=== PATIENT | male | born 1935 | race Caucasian/White ===

== ENCOUNTER 2019-03-07 22:33 | Inpatient (IN) | payer MEDICARE, OTHER ==
--- NOTE | 2019-03-07 22:46 | C.PDOC ---
History Of Present Illness Patient is sent to the ED from [facility] for evaluation of abnormal EKG. Patient is confused at baseline difficulty history obtained. Patient denies CP, headache, palpitations. Time Seen by Provider: 03/07/19 22:45 Chief Complaint (Nursing): Medical Clearance History Per: Patient History/Exam Limitations: clinical condition Onset/Duration Of Symptoms: Days Recent travel outside of the [place]: No Additional History Per: [facility], Prior Records Past Medical History Reviewed: Historical Data, Nursing Documentation, Vital Signs - Medical History PMH: No Chronic Diseases Surgical History: No Surg Hx Family History: States: Unknown Family Hx - Social History Hx Alcohol Use: No Review Of Systems Review Of Systems: ROS cannot be obtained secondary to pt's inabilty to answer questions. Physical Exam - Physical Exam Appears: Non-toxic, Confused Skin: Warm, Dry Head: Normacephalic Eye(s): right: Other (cataract), left: Normal Inspection Teeth: No Normal Dentition (poor dentition) Neck: Supple Chest: Symmetrical Cardiovascular: Rhythm Regular Respiratory: No Rales, Rhonchi (scattered), No Wheezing Gastrointestinal/Abdominal: Soft, No Tenderness, Distention, Other (tympanic to percussion) Extremity: Bilateral: Atraumatic, Normal ROM Neurological/Psych: No Oriented x3 (AOx2) Gait: Unable To Assess ED Course And Treatment ECG: Interpreted By Me, Viewed By Me ECG Rhythm: Sinus Rhythm (87), 1st Degree HB, ST/T Changes (inf lat ischemic changes) O2 Sat by Pulse Oximetry: 97 (ON RA) Pulse Ox Interpretation: Normal - Radiology CXR: Interpreted by Me, Viewed By Me CXR Interpretation: Yes: Infiltrates (rll), Other (left effusion, mild vasc congestion). No: Fracture, Cardiomegaly Disposition Counseled Patient/Family Regarding: Studies Performed, Diagnosis - Disposition Disposition Time: 22:45 - Scribe Statement The provider has reviewed the documentation as recorded by the Scribe Nick Mccartney All medical record entries made by the Scribe were at my direction and personally dictated by me. I have reviewed the chart and agree that the record accurately reflects my personal performance of the history, physical exam, medical decision making, and the department course for this patient. I have also personally directed, reviewed, and agree with the discharge instructions and disposition.
[2019-03-07] MEDS ORDERED: Aspirin 325 mg EC Tablets PO STA (23:00)
[2019-03-07] MEDS ORDERED: Aspirin 325 mg EC Tablets PO ONE (23:36)
[2019-03-08] MEDS ORDERED: Piperacillin/Tazobact 3.375 gm 100 ML IVPB ONE ×2 (00:34→01:24)
[2019-03-08] MEDS: MethylPREDNISolone 40 mg Vial IVP SCH ×3 (06:28→21:41)
[2019-03-08] MEDS: Albuterol-Ipratrop 3 mg / 0.5 (3 ml) UD INH SCH ×3 (07:14→19:14)
[2019-03-08 07:15] LABS: BASO % 0.5 % (0.0-2.0); EOS # 0.2 K/uL (0.0-0.7); EOS % 2.4 % (0.0-4.0); HEMOGLOBIN 9.7 g/dL (12.0-18.0); LYMPH # 0.9 K/uL (1.0-4.3); LYMPH % 12.7 % (20.0-40.0); MEAN CELL VOLUME 91.5 fL (80.0-94.0); MEAN CORPUSCULAR HEMOGLOBIN 31.3 pg (27.0-31.0); MEAN CORPUSCULAR HGB CONC 34.2 g/dL (33.0-37.0); MEAN PLATELET VOLUME 7.4 fL (7.2-11.7); MONO # 0.9 K/uL (0.0-0.8); MONO % 12.8 % (0.0-10.0); NEUT # 5.1 K/uL (1.8-7.0); NEUT % 71.6 % (50.0-75.0); NRBC % 0.1 % (0.0-2.0); RBC 3.11 Mil/uL (4.40-5.90); RED CELL DISTRIBUTION WIDTH 14.6 % (11.5-14.5); WHITE BLOOD COUNT 7.2 K/uL (4.8-10.8)
[2019-03-08 07:48] LABS: PROTHROMBIN TIME 11.2 SECONDS (9.7-12.2)
--- NOTE | 2019-03-08 08:27 | RAD ---
Chest x-ray single frontal view HISTORY: Chest pain. Comparison: None available. Findings: Moderate to severe venous congestion. Patchy airspace opacities in the mid to lower lung zones bilaterally. Small to moderate left and small right pleural effusion. Biapical pleural thickening with upper lobe granulomatous changes. Bilateral hilar prominence. Cardiomegaly. Atherosclerotic calcification at the aortic knob. Degenerative changes in the spine and shoulders. Impression: Moderate to severe venous congestion. Patchy airspace opacities in the mid to lower lung zones bilaterally. Small to moderate left and small right pleural effusion. Biapical pleural thickening with upper lobe granulomatous changes. Bilateral hilar prominence. Cardiomegaly.
[2019-03-08 09:32] LABS: BLOOD UREA NITROGEN 19 mg/dL (9-20); GFR NON-AFRICAN AMERICAN > 60
[2019-03-08 09:33] LABS: ALB/GLOB RATIO 1.1 (1.0-2.1); ALBUMIN 3.5 g/dL (3.5-5.0); ALT/SGPT 33 U/L (21-72); AST/SGOT 35 U/L (17-59); B-TYPE NATRIURETIC PEPTIDE 1590 pg/mL (0-900); CALCIUM 8.8 mg/dl (8.6-10.4)
[2019-03-08 09:34] LABS: LIPASE 89 U/L (23-300)
[2019-03-08] MEDS: Enoxaparin 40 mg Syringe SC SCH (09:49)
[2019-03-08] MEDS: Pantoprazole 40 mg EC Tab PO SCH (09:50)
[2019-03-08] MEDS: Azithromycin 500 MG in Sodium Chloride 0.9% 250 ML IVPB SCH (10:00)
[2019-03-08 12:14] LABS: URINE BILIRUBIN NEGATIVE (NEGATIVE); URINE CLARITY Clear (Clear); URINE COLOR YELLOW (YELLOW); URINE GLUCOSE (UA) Normal (Normal)
[2019-03-08 12:15] LABS: SQUAMOUS EPITHIAL < 1 /hpf (0-5); URINE BLOOD NEGATIVE (NEGATIVE); URINE LEUKOCYTE ESTERASE NEGATIVE Leu/uL (Negative); URINE PROTEIN 2+ mg/dL (NEGATIVE); URINE UROBILINOGEN Normal mg/dL (0.2-1.0)
--- NOTE | 2019-03-08 16:12 | CP.PCM.CON ---
History of Present Illness - History of Present Illness History of Present Illness: CHART REVIEWED. PT SEEN AND EXAMINED 83 YO MALE WITH A HX CHF, AFIB, COPD, HTN, DM, ANEMIA, GERD, ?DEMENTIA, TRANS FROM [place] WITH INCREASED MOD SOB AT REST X 1 DAY. +COUGH. NO SPUTUM. NO FEVER. +ANT CP. NO FURTHER HX AVAILABLE. Review of Systems - Review of Systems Systems not reviewed;Unavailable: Altered Mental Status All systems: reviewed and no additional remarkable complaints except - Constitutional Constitutional: Weakness - Cardiovascular Cardiovascular: Chest Pain - Respiratory Respiratory: Cough - Gastrointestinal Gastrointestinal: absent: Nausea, Vomiting - Integumentary Integumentary: absent: Rash - Neurological Neurological: Confusion Past Patient History - Infectious Disease Hx of Infectious Diseases: None - Past Medical History & Family History Past Medical History?: Yes - Past Social History Smoking Status: Former Smoker Alcohol: None Home Situation {Lives}: [facility] - CARDIAC Hx Atrial Fibrillation: Yes Hx Hypertension: Yes - PULMONARY Hx Chronic Obstructive Pulmonary Disease (COPD): Yes - NEUROLOGICAL Hx Dementia: Yes - ENDOCRINE/METABOLIC Hx Diabetes Mellitus Type 1: Yes - MUSCULOSKELETAL/RHEUMATOLOGICAL Hx Falls: Yes - GASTROINTESTINAL Hx Gastrointestinal Disorders: Yes Hx Gastroesophageal Reflux: Yes - PSYCHIATRIC Hx Substance Use: No - SURGICAL HISTORY Hx Surgeries: No - ANESTHESIA Hx Anesthesia: No Meds Home Medications: Home Medication List Medication Instructions Recorded Confirmed Type Albuterol/Ipratropium [Duoneb 3 3 ml INH RQ6 neb 03/09/19 Rx mg/0.5 mg (3 ml) UD] Furosemide [Lasix] 40 mg PO DAILY #30 tablet 03/09/19 Rx cefTRIAXone [Rocephin] 1 gm IVPB DAILY vial 03/09/19 Rx Allergies/Adverse Reactions: Allergies Allergy/AdvReac Type Severity Reaction Status Date / Time No Known Allergies Allergy Verified 03/07/19 22:53 - Medications Medications: Current Medications Albuterol/Ipratropium (Duoneb 3 Mg/0.5 Mg (3 Ml) Ud) 3 ml INH RQ6 [facility] Last Admin: 03/08/19 13:15 Dose: Not Given Enoxaparin Sodium (Lovenox) 40 mg SC DAILY [facility] Last Admin: 03/08/19 09:49 Dose: 40 mg Furosemide (Lasix) 40 mg IVP DAILY [facility] Last Admin: 03/08/19 09:49 Dose: 40 mg Azithromycin 500 mg/ Sodium (Chloride) 250 mls @ 250 mls/hr IVPB Q24H [facility]; Protocol Last Admin: 03/08/19 10:00 Dose: 250 mls/hr Ceftriaxone Sodium 1 gm/ (Sodium Chloride) 100 mls @ 100 mls/hr IVPB DAILY [facility]; Protocol Last Admin: 03/08/19 09:49 Dose: 100 mls/hr Metformin HCl (Glucophage) 500 mg PO DAILY [facility] Metformin HCl (Glucophage) 500 mg PO ONCE ONE Stop: 03/08/19 18:01 Methylprednisolone (Solu-Medrol) 40 mg IVP Q8 [facility] Last Admin: 03/08/19 14:10 Dose: 40 mg Montelukast Sodium (Singulair) 10 mg PO HS [facility] Pantoprazole Sodium (Protonix Ec Tab) 40 mg PO DAILY [facility] Last Admin: 03/08/19 09:50 Dose: 40 mg Physical Exam - Constitutional Appears: Chronically Ill - Head Exam Head Exam: ATRAUMATIC, NORMOCEPHALIC - Eye Exam Eye Exam: EOMI, Normal appearance - ENT Exam ENT Exam: Mucous Membranes Moist - Neck Exam Neck exam: Positive for: Normal Inspection - Respiratory Exam Respiratory Exam: Decreased Breath Sounds, Rales. absent: Accessory Muscle Use - Cardiovascular Exam Cardiovascular Exam: Irregular Rhythm, +S1, +S2 - GI/Abdominal Exam GI & Abdominal Exam: Soft. absent: Tenderness - Rectal Exam Rectal Exam: Deferred - Extremities Exam Extremities exam: Negative for: calf tenderness, pedal edema - Back Exam Back exam: absent: CVA tenderness (L), CVA tenderness (R) - Neurological Exam Neurological exam: Alert, CN II-XII Intact - Psychiatric Exam Psychiatric exam: Normal Mood Results - Vital Signs Recent Vital Signs: Last Vital Signs Temp 98.8 F 03/08/19 07:47 Pulse 84 03/08/19 08:20 Resp 20 03/08/19 07:47 BP 163/60 H 03/08/19 09:49 Pulse Ox 95 03/08/19 07:47 - Labs Result Diagrams: 03/07/19 23:00 03/07/19 23:00 Labs: Laboratory Results - last 24 hr 03/07/19 03/07/19 03/07/19 00:58 23:00 23:00 WBC 7.2 RBC 3.11 L Hgb 9.7 L Hct 28.4 L MCV 91.5 MCH 31.3 H MCHC 34.2 RDW 14.6 H Plt Count 173 MPV 7.4 Neut % (Auto) 71.6 Lymph % (Auto) 12.7 L [place] % (Auto) 12.8 H Eos % (Auto) 2.4 Baso % (Auto) 0.5 Neut # (Auto) 5.1 Lymph # (Auto) 0.9 L [place] # (Auto) 0.9 H Eos # (Auto) 0.2 Baso # (Auto) 0.0 PT 11.2 INR 1.0 APTT 38.0 H Sodium Potassium Chloride Carbon Dioxide Anion Gap BUN Creatinine Est GFR ( Amer) Est GFR (Non-Af Amer) POC Glucose (mg/dL) Random Glucose Calcium Total Bilirubin AST ALT Alkaline Phosphatase Troponin I NT-Pro-B Natriuret Pep Total Protein Albumin Globulin Albumin/Globulin Ratio Lipase Urine Color Yellow Urine Clarity Clear Urine pH 7.0 Ur Specific [place] 1.010 Urine Protein 2+ H Urine Glucose (UA) Normal Urine Ketones Negative Urine Blood Negative Urine Nitrate Negative Urine Bilirubin Negative Urine Urobilinogen Normal Ur Leukocyte Esterase Negative Urine WBC (Auto) 1 Urine RBC (Auto) < 1 Ur Squamous Epith Cells < 1 03/07/19 03/08/19 03/08/19 23:00 07:38 14:18 WBC RBC Hgb Hct MCV MCH MCHC RDW Plt Count MPV Neut % (Auto) Lymph % (Auto) [place] % (Auto) Eos % (Auto) Baso % (Auto) Neut # (Auto) Lymph # (Auto) [place] # (Auto) Eos # (Auto) Baso # (Auto) PT INR APTT Sodium 135 Potassium 4.4 Chloride 98 Carbon Dioxide 27 Anion Gap 14 BUN 19 Creatinine 0.9 Est GFR ( Amer) > 60 Est GFR (Non-Af Amer) > 60 POC Glucose (mg/dL) 118 H 305 H Random Glucose 116 H Calcium 8.8 Total Bilirubin 0.3 AST 35 ALT 33 Alkaline Phosphatase 94 Troponin I 0.0280 NT-Pro-B Natriuret Pep 1590 H Total Protein 6.9 Albumin 3.5 Globulin 3.3 Albumin/Globulin Ratio 1.1 Lipase 89 Urine Color Urine Clarity Urine pH Ur Specific [place] Urine Protein Urine Glucose (UA) Urine Ketones Urine Blood Urine Nitrate Urine Bilirubin Urine Urobilinogen Ur Leukocyte Esterase Urine WBC (Auto) Urine RBC (Auto) Ur Squamous Epith Cells Assessment & Plan (1) COPD exacerbation Status: Acute (2) CHF exacerbation Status: Acute (3) A-fib Status: Acute (4) HTN (hypertension) Status: Acute (5) Diabetes Status: Acute (6) Anemia Status: Acute (7) GERD (gastroesophageal reflux disease) Status: Acute (8) Pneumonia Status: Acute - Assessment and Plan (Free Text) Assessment: 83 YO MALE WITH A HX MULT MED PROBS ADM WITH DYSPNEA, +COPD EXAC +BILAT PNA/ CHF ON CXR. CXR REVIEWED. CONT STEROIDS, TAPER TOLERATED., CONT NEB BD., MONITOR O2 SAT. EMPIRIC AB. DIURESIS PER CARDIO. GI/DVT PROPHYLAXIS. PROG POOR. DISCUSSED WITH STAFF AT LENGTH. TIME SPENT 1HR.
--- NOTE | 2019-03-08 16:48 | CP.PCM.CON ---
History of Present Illness - History of Present Illness History of Present Illness: CC: Shortness of breath HPI: 83 year old man with following chronic medical problems 1. HTN 2. paroxysmal atrial fibrillation now in NSR 3. Diabetes is chronic and stable on metformin Review of Systems - Review of Systems All systems: reviewed and no additional remarkable complaints except Past Patient History - Infectious Disease Hx of Infectious Diseases: None - Past Medical History & Family History Past Medical History?: Yes - Past Social History Smoking Status: Former Smoker - CARDIAC Hx Atrial Fibrillation: Yes Hx Hypertension: Yes - PULMONARY Hx Chronic Obstructive Pulmonary Disease (COPD): Yes - NEUROLOGICAL Hx Dementia: Yes - ENDOCRINE/METABOLIC Hx Diabetes Mellitus Type 1: Yes - MUSCULOSKELETAL/RHEUMATOLOGICAL Hx Falls: Yes - GASTROINTESTINAL Hx Gastrointestinal Disorders: Yes Hx Gastroesophageal Reflux: Yes - PSYCHIATRIC Hx Substance Use: No - ANESTHESIA Hx Anesthesia: No Meds Allergies/Adverse Reactions: Allergies Allergy/AdvReac Type Severity Reaction Status Date / Time No Known Allergies Allergy Verified 03/07/19 22:53 - Medications Medications: Current Medications Albuterol/Ipratropium (Duoneb 3 Mg/0.5 Mg (3 Ml) Ud) 3 ml INH RQ6 [facility] Last Admin: 03/08/19 13:15 Dose: Not Given Enoxaparin Sodium (Lovenox) 40 mg SC DAILY [facility] Last Admin: 03/08/19 09:49 Dose: 40 mg Furosemide (Lasix) 40 mg IVP DAILY [facility] Last Admin: 03/08/19 09:49 Dose: 40 mg Azithromycin 500 mg/ Sodium (Chloride) 250 mls @ 250 mls/hr IVPB Q24H [facility]; [facility] Last Admin: 03/08/19 10:00 Dose: 250 mls/hr Ceftriaxone Sodium 1 gm/ (Sodium Chloride) 100 mls @ 100 mls/hr IVPB DAILY [facility]; Protocol Last Admin: 03/08/19 09:49 Dose: 100 mls/hr Metformin HCl (Glucophage) 500 mg PO DAILY [facility] Metformin HCl (Glucophage) 500 mg PO ONCE ONE Stop: 03/08/19 18:01 Methylprednisolone (Solu-Medrol) 40 mg IVP Q8 [facility] Last Admin: 03/08/19 14:10 Dose: 40 mg Montelukast Sodium (Singulair) 10 mg PO HS [facility] Pantoprazole Sodium (Protonix Ec Tab) 40 mg PO DAILY [facility] Last Admin: 03/08/19 09:50 Dose: 40 mg Physical Exam - Constitutional Appears: Well, Non-toxic - Head Exam Head Exam: ATRAUMATIC, NORMAL INSPECTION - Eye Exam Eye Exam: PERRL, Scleral icterus - ENT Exam ENT Exam: Mucous Membranes Moist, Normal External Ear Exam - Neck Exam Neck exam: Positive for: Full Rom. Negative for: Thyromegaly - Respiratory Exam Respiratory Exam: Wheezes, NORMAL BREATHING PATTERN - Cardiovascular Exam Cardiovascular Exam: REGULAR RHYTHM, RRR, +S1, +S2. absent: JVD - GI/Abdominal Exam GI & Abdominal Exam: Normal Bowel Sounds. absent: Organomegaly - Extremities Exam Extremities exam: Negative for: calf tenderness, pedal edema - Neurological Exam Neurological exam: CN II-XII Intact, Oriented x3 - Psychiatric Exam Psychiatric exam: Normal Affect Results - Vital Signs Recent Vital Signs: Last Vital Signs Temp 98.8 F 03/08/19 07:47 Pulse 84 03/08/19 08:20 Resp 20 03/08/19 07:47 BP 163/60 H 03/08/19 09:49 Pulse Ox 95 03/08/19 07:47 - Labs Result Diagrams: 03/07/19 23:00 03/07/19 23:00 Labs: Laboratory Results - last 24 hr 03/07/19 03/07/19 03/07/19 00:58 23:00 23:00 WBC 7.2 RBC 3.11 L Hgb 9.7 L Hct 28.4 L MCV 91.5 MCH 31.3 H MCHC 34.2 RDW 14.6 H Plt Count 173 MPV 7.4 Neut % (Auto) 71.6 Lymph % (Auto) 12.7 L [place] % (Auto) 12.8 H Eos % (Auto) 2.4 Baso % (Auto) 0.5 Neut # (Auto) 5.1 Lymph # (Auto) 0.9 L [place] # (Auto) 0.9 H Eos # (Auto) 0.2 Baso # (Auto) 0.0 PT 11.2 INR 1.0 APTT 38.0 H Sodium Potassium Chloride Carbon Dioxide Anion Gap BUN Creatinine Est GFR ( Amer) Est GFR (Non-Af Amer) POC Glucose (mg/dL) Random Glucose Calcium Total Bilirubin AST ALT Alkaline Phosphatase Troponin I NT-Pro-B Natriuret Pep Total Protein Albumin Globulin Albumin/Globulin Ratio Lipase Urine Color Yellow Urine Clarity Clear Urine pH 7.0 Ur Specific [place] 1.010 Urine Protein 2+ H Urine Glucose (UA) Normal Urine Ketones Negative Urine Blood Negative Urine Nitrate Negative Urine Bilirubin Negative Urine Urobilinogen Normal Ur Leukocyte Esterase Negative Urine WBC (Auto) 1 Urine RBC (Auto) < 1 Ur Squamous Epith Cells < 1 03/07/19 03/08/19 03/08/19 23:00 07:38 14:18 WBC RBC Hgb Hct MCV MCH MCHC RDW Plt Count MPV Neut % (Auto) Lymph % (Auto) [place] % (Auto) Eos % (Auto) Baso % (Auto) Neut # (Auto) Lymph # (Auto) [place] # (Auto) Eos # (Auto) Baso # (Auto) PT INR APTT Sodium 135 Potassium 4.4 Chloride 98 Carbon Dioxide 27 Anion Gap 14 BUN 19 Creatinine 0.9 Est GFR ( Amer) > 60 Est GFR (Non-Af Amer) > 60 POC Glucose (mg/dL) 118 H 305 H Random Glucose 116 H Calcium 8.8 Total Bilirubin 0.3 AST 35 ALT 33 Alkaline Phosphatase 94 Troponin I 0.0280 NT-Pro-B Natriuret Pep 1590 H Total Protein 6.9 Albumin 3.5 Globulin 3.3 Albumin/Globulin Ratio 1.1 Lipase 89 Urine Color Urine Clarity Urine pH Ur Specific [place] Urine Protein Urine Glucose (UA) Urine Ketones Urine Blood Urine Nitrate Urine Bilirubin Urine Urobilinogen Ur Leukocyte Esterase Urine WBC (Auto) Urine RBC (Auto) Ur Squamous Epith Cells 03/08/19 16:00 WBC RBC Hgb Hct MCV MCH MCHC RDW Plt Count MPV Neut % (Auto) Lymph % (Auto) [place] % (Auto) Eos % (Auto) Baso % (Auto) Neut # (Auto) Lymph # (Auto) [place] # (Auto) Eos # (Auto) Baso # (Auto) PT INR APTT Sodium Potassium Chloride Carbon Dioxide Anion Gap BUN Creatinine Est GFR ( Amer) Est GFR (Non-Af Amer) POC Glucose (mg/dL) 230 H Random Glucose Calcium Total Bilirubin AST ALT Alkaline Phosphatase Troponin I NT-Pro-B Natriuret Pep Total Protein Albumin Globulin Albumin/Globulin Ratio Lipase Urine Color Urine Clarity Urine pH Ur Specific [place] Urine Protein Urine Glucose (UA) Urine Ketones Urine Blood Urine Nitrate Urine Bilirubin Urine Urobilinogen Ur Leukocyte Esterase Urine WBC (Auto) Urine RBC (Auto) Ur Squamous Epith Cells - EKG Data EKG Interpreted by: Myself EKG shows normal: Sinus rhythm Rate: Normal - Imaging and Cardiology Chest x-ray Status: Image reviewed by me (Pleural effusion) Additional comment: Pleural effusion Assessment & Plan - Assessment and Plan (Free Text) Plan: 83 year old man with health care associated PNA on abx Pleural effusion clinically improved with lasix HTn is chronic and stable Diabetes is chronic and stable on metformin Paroxysmal atrial fibrillation is now in NSR, if this is a true diagnosis he might benefit from anticoagulation Chronic diastolic CHF obtain 2D echo
--- NOTE | 2019-03-08 21:12 | CP.PCM.HP ---
History of Present Illness - History of Present Illness History of Present Illness: 83-year-old gentleman with multiple past medical history history of A. fib history of hypertension history of osteoarthritis was brought in from the rehab as patient became short of breath and possible has a fever so received a call fr om the intermediate stating that patient is short of breath eventually patient was brought to the emergency room as patient was short of breath Patient speaks a little [place] and answer the question complains of cough with the sputum PMH: No Chronic Diseases Surgical History: No Surg Hx Family History: States: Unknown Family Hx - Social History Hx Alcohol Use: No Review Of Systems Review Of Systems: ROS cannot be obtained secondary to pt's inabilty to answer questions. Glucose 116 Present on Admission - Present on Admission Any Indicators Present on Admission: No Past Patient History - Infectious Disease Hx of Infectious Diseases: None - Past Medical History & Family History Past Medical History?: Yes - Past Social History Smoking Status: Former Smoker - CARDIAC Hx Atrial Fibrillation: Yes Hx Hypertension: Yes - PULMONARY Hx Chronic Obstructive Pulmonary Disease (COPD): Yes - NEUROLOGICAL Hx Dementia: Yes - ENDOCRINE/METABOLIC Hx Diabetes Mellitus Type 1: Yes - MUSCULOSKELETAL/RHEUMATOLOGICAL Hx Falls: Yes - GASTROINTESTINAL Hx Gastrointestinal Disorders: Yes Hx Gastroesophageal Reflux: Yes - PSYCHIATRIC Hx Substance Use: No - ANESTHESIA Hx Anesthesia: No Meds Home Medications: Home Medication List Medication Instructions Recorded Confirmed Type Albuterol/Ipratropium [Duoneb 3 3 ml INH RQ6 neb 03/09/19 Rx mg/0.5 mg (3 ml) UD] Furosemide [Lasix] 40 mg PO DAILY #30 tablet 03/09/19 Rx cefTRIAXone [Rocephin] 1 gm IVPB DAILY vial 03/09/19 Rx Allergies/Adverse Reactions: Allergies Allergy/AdvReac Type Severity Reaction Status Date / Time No Known Allergies Allergy Verified 03/07/19 22:53 Physical Exam - Constitutional Appears: Well - Head Exam Head Exam: ATRAUMATIC, NORMAL INSPECTION, NORMOCEPHALIC - Eye Exam Eye Exam: EOMI, Normal appearance, PERRL Pupil Exam: NORMAL ACCOMODATION, PERRL - ENT Exam ENT Exam: Mucous Membranes Moist, Normal Exam - Neck Exam Neck exam: Positive for: Normal Inspection - Respiratory Exam Respiratory Exam: Decreased Breath Sounds - Cardiovascular Exam Cardiovascular Exam: REGULAR RHYTHM, +S1, +S2 - GI/Abdominal Exam GI & Abdominal Exam: Diminished Bowel Sounds, Soft - Rectal Exam Rectal Exam: Deferred - Neurological Exam Neurological exam: Oriented x3 Results - Vital Signs Recent Vital Signs: Last Vital Signs Temp 97.2 F L 03/08/19 16:53 Pulse 97 H 03/08/19 16:53 Resp 20 03/08/19 16:53 BP 156/64 H 03/08/19 16:53 Pulse Ox 97 03/08/19 16:53 - Labs Result Diagrams: 03/07/19 23:00 03/07/19 23:00 Labs: Laboratory Results - last 24 hr 03/07/19 03/07/19 03/07/19 00:58 23:00 23:00 WBC 7.2 RBC 3.11 L Hgb 9.7 L Hct 28.4 L MCV 91.5 MCH 31.3 H MCHC 34.2 RDW 14.6 H Plt Count 173 MPV 7.4 Neut % (Auto) 71.6 Lymph % (Auto) 12.7 L [place] % (Auto) 12.8 H Eos % (Auto) 2.4 Baso % (Auto) 0.5 Neut # (Auto) 5.1 Lymph # (Auto) 0.9 L [place] # (Auto) 0.9 H Eos # (Auto) 0.2 Baso # (Auto) 0.0 PT 11.2 INR 1.0 APTT 38.0 H Sodium Potassium Chloride Carbon Dioxide Anion Gap BUN Creatinine Est GFR ( Amer) Est GFR (Non-Af Amer) POC Glucose (mg/dL) Random Glucose Calcium Total Bilirubin AST ALT Alkaline Phosphatase Troponin I NT-Pro-B Natriuret Pep Total Protein Albumin Globulin Albumin/Globulin Ratio Lipase Urine Color Yellow Urine Clarity Clear Urine pH 7.0 Ur Specific [place] 1.010 Urine Protein 2+ H Urine Glucose (UA) Normal Urine Ketones Negative Urine Blood Negative Urine Nitrate Negative Urine Bilirubin Negative Urine Urobilinogen Normal Ur Leukocyte Esterase Negative Urine WBC (Auto) 1 Urine RBC (Auto) < 1 Ur Squamous Epith Cells < 1 03/07/19 03/08/19 03/08/19 23:00 07:38 14:18 WBC RBC Hgb Hct MCV MCH MCHC RDW Plt Count MPV Neut % (Auto) Lymph % (Auto) [place] % (Auto) Eos % (Auto) Baso % (Auto) Neut # (Auto) Lymph # (Auto) [place] # (Auto) Eos # (Auto) Baso # (Auto) PT INR APTT Sodium 135 Potassium 4.4 Chloride 98 Carbon Dioxide 27 Anion Gap 14 BUN 19 Creatinine 0.9 Est GFR ( Amer) > 60 Est GFR (Non-Af Amer) > 60 POC Glucose (mg/dL) 118 H 305 H Random Glucose 116 H Calcium 8.8 Total Bilirubin 0.3 AST 35 ALT 33 Alkaline Phosphatase 94 Troponin I 0.0280 NT-Pro-B Natriuret Pep 1590 H Total Protein 6.9 Albumin 3.5 Globulin 3.3 Albumin/Globulin Ratio 1.1 Lipase 89 Urine Color Urine Clarity Urine pH Ur Specific [place] Urine Protein Urine Glucose (UA) Urine Ketones Urine Blood Urine Nitrate Urine Bilirubin Urine Urobilinogen Ur Leukocyte Esterase Urine WBC (Auto) Urine RBC (Auto) Ur Squamous Epith Cells 03/08/19 16:00 WBC RBC Hgb Hct MCV MCH MCHC RDW Plt Count MPV Neut % (Auto) Lymph % (Auto) [place] % (Auto) Eos % (Auto) Baso % (Auto) Neut # (Auto) Lymph # (Auto) [place] # (Auto) Eos # (Auto) Baso # (Auto) PT INR APTT Sodium Potassium Chloride Carbon Dioxide Anion Gap BUN Creatinine Est GFR ( Amer) Est GFR (Non-Af Amer) POC Glucose (mg/dL) 230 H Random Glucose Calcium Total Bilirubin AST ALT Alkaline Phosphatase Troponin I NT-Pro-B Natriuret Pep Total Protein Albumin Globulin Albumin/Globulin Ratio Lipase Urine Color Urine Clarity Urine pH Ur Specific [place] Urine Protein Urine Glucose (UA) Urine Ketones Urine Blood Urine Nitrate Urine Bilirubin Urine Urobilinogen Ur Leukocyte Esterase Urine WBC (Auto) Urine RBC (Auto) Ur Squamous Epith Cells Assessment & Plan (1) A-fib Status: Acute (2) Anemia Status: Acute (3) CHF exacerbation Status: Acute (4) COPD exacerbation Status: Acute (5) Diabetes Status: Acute (6) GERD (gastroesophageal reflux disease) Status: Acute (7) HTN (hypertension) Status: Acute (8) Pneumonia Status: Acute - Assessment and Plan (Free Text) Plan: Moderate to high complexity of care. Plan of care discussed with patient &/or family & staff. chest x-ray reveals bilateral pneumonia Seen by pulmonary Plan EKG sinus rhythm first-degree heart block no ST-T changes saturation 97% chest x-ray bilateral pneumonia with pleural effusion Rocephin Zithromax DuoNeb Steroid Protonix Cardiology Hemoglobin hematocrit 9.7 and 28.4 BUN/creatinine normal
[2019-03-09] MEDS: Albuterol-Ipratrop 3 mg / 0.5 (3 ml) UD INH SCH ×4 (01:29→13:26)
[2019-03-09] MEDS: MethylPREDNISolone 40 mg Vial IVP SCH ×2 (05:35→13:04)
--- NOTE | 2019-03-09 08:15 | CP.PCM.PN ---
Subjective - Date & Time of Evaluation Date of Evaluation: 03/09/19 Time of Evaluation: 10:20 - Subjective Subjective: Events reviewed Objective - Vital Signs/Intake and Output Vital Signs (last 24 hours): Temp Pulse Resp BP Pulse Ox 97.3 F L 105 H 22 173/51 H 96 03/09/19 08:07 03/09/19 08:07 03/09/19 08:07 03/09/19 08:07 03/09/19 08:07 - Medications Medications: Current Medications Albuterol/Ipratropium (Duoneb 3 Mg/0.5 Mg (3 Ml) Ud) 3 ml INH RQ6 [facility] Last Admin: 03/09/19 06:44 Dose: 3 ml Enoxaparin Sodium (Lovenox) 40 mg SC DAILY [facility] Last Admin: 03/08/19 09:49 Dose: 40 mg Furosemide (Lasix) 40 mg IVP DAILY [facility] Last Admin: 03/08/19 09:49 Dose: 40 mg Azithromycin 500 mg/ Sodium (Chloride) 250 mls @ 250 mls/hr IVPB Q24H [facility]; Protocol Last Admin: 03/08/19 10:00 Dose: 250 mls/hr Ceftriaxone Sodium 1 gm/ (Sodium Chloride) 100 mls @ 100 mls/hr IVPB DAILY [facility]; Protocol Last Admin: 03/08/19 09:49 Dose: 100 mls/hr Metformin HCl (Glucophage) 500 mg PO DAILY [facility] Methylprednisolone (Solu-Medrol) 40 mg IVP Q8 [facility] Last Admin: 03/09/19 05:35 Dose: 40 mg Montelukast Sodium (Singulair) 10 mg PO HS [facility] Last Admin: 03/08/19 21:42 Dose: 10 mg Pantoprazole Sodium (Protonix Ec Tab) 40 mg PO DAILY [facility] Last Admin: 03/08/19 09:50 Dose: 40 mg - Labs Labs: 03/07/19 23:00 03/07/19 23:00 PT 11.2 SECONDS (9.7-12.2) 03/07/19 23:00 INR 1.0 03/07/19 23:00 APTT 38.0 SECONDS (21-34) H 03/07/19 23:00 Assessment and Plan - Assessment and Plan (Free Text) Assessment: Physical Exam - Constitutional Appears: Well, Non-toxic - Head Exam Head Exam: ATRAUMATIC, NORMAL INSPECTION - Eye Exam Eye Exam: PERRL, Scleral icterus - ENT Exam ENT Exam: Mucous Membranes Moist, Normal External Ear Exam - Neck Exam Neck exam: Positive for: Full Rom. Negative for: Thyromegaly - Respiratory Exam Respiratory Exam: Clear to auscultation, NORMAL BREATHING PATTERN - Cardiovascular Exam Cardiovascular Exam: REGULAR RHYTHM, RRR, +S1, +S2. absent: JVD - GI/Abdominal Exam GI & Abdominal Exam: Normal Bowel Sounds. absent: Organomegaly - Extremities Exam Extremities exam: Negative for: calf tenderness, pedal edema - Neurological Exam Neurological exam: CN II-XII Intact, Oriented x3 - Psychiatric Exam Psychiatric exam: Normal Affect - EKG Data EKG Interpreted by: Myself EKG shows normal: Sinus rhythm Rate: Normal - Imaging and Cardiology Chest x-ray Status: Image reviewed by me (Pleural effusion) Additional comment: Pleural effusion Assessment & Plan - Assessment and Plan (Free Text) Plan: 83 year old man with health care associated PNA on abx, afebrile, consider PO course Pleural effusion clinically improved with lasix HTn is chronic and stable Diabetes is chronic and stable on metformin Paroxysmal atrial fibrillation is now in NSR, if this is a true diagnosis he might benefit from anticoagulation, but there has been no evidence on telemetry. HE can follow up in my office in 2 weeks to schedule a mobile telemetry for surveillance for atrial fibrillation. Call back as needed
[2019-03-09] MEDS: Azithromycin 500 MG in Sodium Chloride 0.9% 250 ML IVPB SCH (10:19)
[2019-03-09] MEDS: Enoxaparin 40 mg Syringe SC SCH (10:20)
[2019-03-09] MEDS: Pantoprazole 40 mg EC Tab PO SCH (10:20)
[2019-03-09 16:23] VITALS: BP 152/62; PULSE 96; RESP 20; TEMP 97.2; O2SAT 97
--- NOTE | 2019-03-09 17:00 | PCM.HF ---
Heart Failure Core Measure - Heart Failure Left Ventricular Function to be assessed after discharge: Yes Hydralazine Nitrate Prescribed: Yes Implantable Cardioverter Defibrillator Therapy: No Contraindication/Reason for not providing: To follow up with cardiologyst Cardiac Resynchronization Therapy Prescribed: No Contraindication/Reason for not providing: not indicated - Follow up Will be discharged to: [facility] ([facility])
--- NOTE | 2019-03-09 17:21 | CP.PCM.PN ---
Objective - Vital Signs/Intake and Output Vital Signs (last 24 hours): Temp Pulse Resp BP Pulse Ox 97.2 F L 96 H 20 152/62 H 97 03/09/19 16:23 03/09/19 16:23 03/09/19 16:23 03/09/19 16:23 03/09/19 16:23 - Medications Medications: Current Medications Albuterol/Ipratropium (Duoneb 3 Mg/0.5 Mg (3 Ml) Ud) 3 ml INH RQ6 [facility] Last Admin: 03/09/19 13:26 Dose: 3 ml Enoxaparin Sodium (Lovenox) 40 mg SC DAILY [facility] Last Admin: 03/09/19 10:20 Dose: 40 mg Furosemide (Lasix) 40 mg IVP DAILY [facility] Last Admin: 03/09/19 10:20 Dose: 40 mg Ceftriaxone Sodium 1 gm/ (Sodium Chloride) 100 mls @ 100 mls/hr IVPB DAILY [facility]; Protocol Last Admin: 03/09/19 09:09 Dose: 100 mls/hr Metformin HCl (Glucophage) 500 mg PO DAILY [facility] Last Admin: 03/09/19 10:20 Dose: 500 mg Methylprednisolone (Solu-Medrol) 40 mg IVP Q8 [facility] Last Admin: 03/09/19 13:04 Dose: 40 mg Montelukast Sodium (Singulair) 10 mg PO HS [facility] Last Admin: 03/08/19 21:42 Dose: 10 mg Pantoprazole Sodium (Protonix Ec Tab) 40 mg PO DAILY [facility] Last Admin: 03/09/19 10:20 Dose: 40 mg - Labs Labs: 03/07/19 23:00 03/07/19 23:00 PT 11.2 SECONDS (9.7-12.2) 03/07/19 23:00 INR 1.0 03/07/19 23:00 APTT 38.0 SECONDS (21-34) H 03/07/19 23:00 Assessment and Plan - Assessment and Plan (Free Text) Assessment: 83 year old male admitted from the sn[facility] with sob and pneumonia, seen and examined. Awake, alert, follows commands. Cleared by the cadiologyst, discussed with DR Jesu Ruiz, plan to discharge back to the snf on 1 week of iv antibiotics.
--- NOTE | 2019-03-09 22:06 | CP.PCM.DIS ---
Provider - Provider Date of Admission: 03/08/19 00:34 Attending physician: Blanco Trevizo MD Primary care physician: blanco trevizo Consults: 03/08/19 04:06 Cardiology Consult Routine Comment: Consulting Provider: Murray Tang Consulting Physician: Murray Tang Reason for Consult: CHF 03/08/19 04:08 Pulmonology Consult Routine Comment: Consulting Provider: Zeenat Ferguson Consulting Physician: Zeenat Ferguson Reason for Consult: PNA 03/08/19 06:54 Social Work Referral Routine Comment: [place] resident Physician Instructions: Reason For Exam: eval 03/08/19 07:02 Nursing Referral for Palliative Care Routine Comment: Physician Instructions: Reason For Exam: eval Time Spent in preparation of Discharge (in minutes): 30 Diagnosis - Discharge Diagnosis (1) A-fib Status: Acute (2) Anemia Status: Acute (3) CHF exacerbation Status: Acute (4) COPD exacerbation Status: Acute (5) Diabetes Status: Acute (6) GERD (gastroesophageal reflux disease) Status: Acute (7) HTN (hypertension) Status: Acute (8) Pneumonia Status: Acute Hospital Course - Lab Results Lab Results: Most Recent Lab Values WBC 7.2 K/uL (4.8-10.8) 03/07/19 23:00 RBC 3.11 Mil/uL (4.40-5.90) L 03/07/19 23:00 Hgb 9.7 g/dL (12.0-18.0) L 03/07/19 23:00 Hct 28.4 % (35.0-51.0) L 03/07/19 23:00 MCV 91.5 fL (80.0-94.0) 03/07/19 23:00 MCH 31.3 pg (27.0-31.0) H 03/07/19 23:00 MCHC 34.2 g/dL (33.0-37.0) 03/07/19 23:00 RDW 14.6 % (11.5-14.5) H 03/07/19 23:00 Plt Count 173 K/uL (130-400) 03/07/19 23:00 MPV 7.4 fL (7.2-11.7) 03/07/19 23:00 Neut % (Auto) 71.6 % (50.0-75.0) 03/07/19 23:00 Lymph % (Auto) 12.7 % (20.0-40.0) L 03/07/19 23:00 [place] % (Auto) 12.8 % (0.0-10.0) H 03/07/19 23:00 Eos % (Auto) 2.4 % (0.0-4.0) 03/07/19 23:00 Baso % (Auto) 0.5 % (0.0-2.0) 03/07/19 23:00 Neut # (Auto) 5.1 K/uL (1.8-7.0) 03/07/19 23:00 Lymph # (Auto) 0.9 K/uL (1.0-4.3) L 03/07/19 23:00 [place] # (Auto) 0.9 K/uL (0.0-0.8) H 03/07/19 23:00 Eos # (Auto) 0.2 K/uL (0.0-0.7) 03/07/19 23:00 Baso # (Auto) 0.0 K/uL (0.0-0.2) 03/07/19 23:00 PT 11.2 SECONDS (9.7-12.2) 03/07/19 23:00 INR 1.0 03/07/19 23:00 APTT 38.0 SECONDS (21-34) H 03/07/19 23:00 Sodium 135 mmol/L (132-148) 03/07/19 23:00 Potassium 4.4 mmol/L (3.6-5.2) 03/07/19 23:00 Chloride 98 mmol/L (98-107) 03/07/19 23:00 Carbon Dioxide 27 mmol/L (22-30) 03/07/19 23:00 Anion Gap 14 (10-20) 03/07/19 23:00 BUN 19 mg/dL (9-20) 03/07/19 23:00 Creatinine 0.9 mg/dL (0.8-1.5) 03/07/19 23:00 Est GFR ( Amer) > 60 03/07/19 23:00 Est GFR (Non-Af Amer) > 60 03/07/19 23:00 POC Glucose (mg/dL) 137 mg/dL (65-110) H 03/09/19 16:11 Random Glucose 116 mg/dL (75-110) H 03/07/19 23:00 Calcium 8.8 mg/dl (8.6-10.4) 03/07/19 23:00 Total Bilirubin 0.3 mg/dL (0.2-1.3) 03/07/19 23:00 AST 35 U/L (17-59) 03/07/19 23:00 ALT 33 U/L (21-72) 03/07/19 23:00 Alkaline Phosphatase 94 U/L (38-126) 03/07/19 23:00 Troponin I 0.0280 ng/mL (0.00-0.120) 03/07/19 23:00 NT-Pro-B Natriuret Pep 1590 pg/mL (0-900) H 03/07/19 23:00 Total Protein 6.9 g/dL (6.3-8.3) 03/07/19 23:00 Albumin 3.5 g/dL (3.5-5.0) 03/07/19 23:00 Globulin 3.3 gm/dL (2.2-3.9) 03/07/19 23:00 Albumin/Globulin Ratio 1.1 (1.0-2.1) 03/07/19 23:00 Lipase 89 U/L (23-300) 03/07/19 23:00 Urine Color Yellow (YELLOW) 03/07/19 00:58 Urine Clarity Clear (Clear) 03/07/19 00:58 Urine pH 7.0 (5.0-8.0) 03/07/19 00:58 Ur Specific [place] 1.010 (1.003-1.030) 03/07/19 00:58 Urine Protein 2+ mg/dL (NEGATIVE) H 03/07/19 00:58 Urine Glucose (UA) Normal mg/dL (Normal) 03/07/19 00:58 Urine Ketones Negative mg/dL (NEGATIVE) 03/07/19 00:58 Urine Blood Negative (NEGATIVE) 03/07/19 00:58 Urine Nitrate Negative (NEGATIVE) 03/07/19 00:58 Urine Bilirubin Negative (NEGATIVE) 03/07/19 00:58 Urine Urobilinogen Normal mg/dL (0.2-1.0) 03/07/19 00:58 Ur Leukocyte Esterase Negative [place]/uL (Negative) 03/07/19 00:58 Urine WBC (Auto) 1 /hpf (0-5) 03/07/19 00:58 Urine RBC (Auto) < 1 /hpf (0-3) 03/07/19 00:58 Ur Squamous Epith Cells < 1 /hpf (0-5) 03/07/19 00:58 - Hospital Course Hospital Course: 83-year-old male admitted with CHF and pneumonia received IV Lasix and IV just a azithromycin and IV Rocephin Also Solu-Medrol patient's for discharge with admission hemoglobin of 9.7 patient has a pleural effusion on the x-ray discussed with classified ad taker who claims that patient may benefit from anticoagulation as patient has paroxysmal A. fib patient currently is in normal sinus rhythm he wants to put 2 weeks of Holter monitor patient has bilateral pleural thickening with upper granulomatous changes with bilateral hilar prominence on the x-ray patient's has no fever patient understands that he is going back to the rehab today patient understood patient's to be followed by the classified ad taker patient is for discharge Moderate to high complexity of care. Plan of care discussed with patient &/or family & staff. Discharge Exam - Head Exam Head Exam: ATRAUMATIC, NORMAL INSPECTION, NORMOCEPHALIC - Eye Exam Eye Exam: EOMI, Normal appearance, PERRL Pupil Exam: NORMAL ACCOMODATION, PERRL - ENT Exam ENT Exam: Mucous Membranes Moist - Neck Exam Neck exam: Full Rom - Respiratory Exam Respiratory Exam: Decreased Breath Sounds - Cardiovascular Exam Cardiovascular Exam: REGULAR RHYTHM, +S1, +S2 - GI/Abdominal Exam GI & Abdominal Exam: Diminished Bowel Sounds, Soft - Rectal Exam Rectal Exam: Deferred - Neurological Exam Neurological exam: Oriented x3 Discharge Plan - Discharge Medications Prescriptions: Furosemide [Lasix] 40 mg PO DAILY #30 tablet - Follow Up Plan Condition: GOOD Disposition: HOME/ ROUTINE Instructions: Heart Healthy Diet, Heart Failure, Adult (DC), Exacerbation of COPD (DC), Atrial Fibrillation (DC), Heart Failure (DC), Heart Failure (GEN), Pacemaker (DC), Pacemaker (GEN), Pulmonary Edema (DC), Pulmonary Edema (GEN), Ascites (DC), Ascites (GEN) Additional Instructions: rocephine 1 gm iv daily x5 days more, may send with HL PT/OT as tolerated follow up with CARDIOLOGYST IN 2 WEEKS Referrals: Murray Tang MD [Staff Provider] - Zeenat Ferguson MD [Staff Provider] -
== END 2019-03-09 18:12 | disposition home or self-care (01) | DRG 291 ==
LOC: C.ER 22:33 → C.5S 03-08 00:34
PROVIDERS: ADMIT Internal Medicine Nephrology; ATTEND Internal Medicine Nephrology
DX: I11.0 Hypertensive heart disease with heart failure (principal); J18.9 Pneumonia, unspecified organism; J44.0 Chronic obstructive pulmonary disease with (acute) lower respiratory infection; J44.1 Chronic obstructive pulmonary disease with (acute) exacerbation; I48.0 Paroxysmal atrial fibrillation; F03.90 Unspecified dementia, unspecified severity, without behavioral disturbance, psychotic disturbance, mood disturbance, and anxiety; I50.9 Heart failure, unspecified; D64.9 Anemia, unspecified; Z79.4 Long term (current) use of insulin; K21.9 Gastro-esophageal reflux disease without esophagitis; Z87.891 Personal history of nicotine dependence; E10.9 Type 1 diabetes mellitus without complications